=== PATIENT | female | born 1955 | race Two or more races ===

== ENCOUNTER 2024-12-21 15:40 | Inpatient (IN) | payer BC ==
[~2024-12-21] VITALS: Ht 157.5 cm; Wt 64.9 kg
[2024-12-21 16:53] LABS: PLATELET COUNT (AUTO) 357 K/uL (150-450); RED BLOOD CELL COUNT(AUTO) 4.01 MIL/uL (4.0-5.2); RED CELL DISTRIBUTION WIDTH 14.1 % (11.5-15.0); WHITE BLOOD COUNT (AUTO) 10.9 K/uL (4.3-11.0)
[2024-12-21 17:05] LABS: CALCIUM, SERUM 9.3 mg/dL (8.5-10.1); CREATININE 1.5 mg/dL (0.6-1.3); SODIUM SERUM 136.0 mmol/L (136-145); UREA NITROGEN, BLOOD 40.0 mg/dL (7-18)
[2024-12-21 17:10] LABS: ASPARTATE AMINOTRANSFERASE 16.0 U/L (15-37); TOTAL PROTEIN, SERUM 8.1 g/dL (6.4-8.2)
[2024-12-21] MEDS ORDERED: ONDANSETRON HCL/PF 4 MG/2 ML VIAL ONE (18:40)
[2024-12-21] MEDS ORDERED: MORPHINE SULFATE INJ 4 MG/ML DISP.SYRIN ONE (18:40)
[2024-12-21] MEDS: IV NS 0.9% 1,000 ML BAG IV ONE ×2 (18:45→21:23)
[2024-12-21] MEDS: MORPHINE SULFATE INJ 2 MG/ML DISP.SYRIN IV ONE ×2 (18:47→21:21)
[2024-12-21] MEDS: ONDANSETRON HCL/PF 4 MG/2 ML VIAL IV ONE (18:47)
[2024-12-21 19:11] LABS: APPEARANCE,URINE CLEAR (CLEAR); BLOOD, URINE 1+ Ery/uL (NEGATIVE); LEUKOCYTE ESTERASE ,URINE 3+ (NEGATIVE); NITRITE, URINE NEGATIVE (NEGATIVE); UGLUCOSE NEGATIVE (NEGATIVE)
[2024-12-21 19:24] LABS: ADD URINE CULTURE YES
[2024-12-21 19:25] LABS: SQUAMOUS EPITHELIAL CELL,UR Rare /HPF (None Seen)
[2024-12-21 20:32] LABS: ASPARTATE AMINOTRANSFERASE 20.0 U/L (15-37); CALCIUM, SERUM 8.6 mg/dL (8.5-10.1); CREATININE 1.4 mg/dL (0.6-1.3); SODIUM SERUM 137.0 mmol/L (136-145); TOTAL PROTEIN, SERUM 7.0 g/dL (6.4-8.2); UREA NITROGEN, BLOOD 38.0 mg/dL (7-18)
[2024-12-21] MEDS: CEFTRIAXONE 1GM BAG (ER ONLY) 50 ML IV ONE (21:23)
[2024-12-21] MEDS ORDERED: ONDANSETRON HCL/PF 4 MG/2 ML VIAL IVP PRN (22:00)
[2024-12-21] MEDS ORDERED: MAG HYDROX/AL HYDROX/SIMETH 30 ML UDC PO PRN (22:00)
[2024-12-21] MEDS ORDERED: Z GUARD REMEDY 4 OZ OINT TP PRN (22:00)
[2024-12-21] MEDS ORDERED: MAGNESIUM HYDROXIDE 30 ML UDC PO PRN (22:00)
[2024-12-21 23:10] VITALS: BP 145/55; TEMP 98.2; O2SAT 98
[2024-12-22] MEDS ORDERED: PIPERACI/TAZO 3.375GM/D5W 50ML PB IV ONE (00:21)
[2024-12-22] MEDS: IV NS 0.9% 1,000 ML IV PRN (00:30)
[2024-12-22] MEDS: PIPERACILLIN /TAZOBACTAM 3.375 G in IV D5W 50 ML IV SCH (00:31)
[2024-12-22 07:31] LABS: PLATELET COUNT (AUTO) 286 K/uL (150-450); RED BLOOD CELL COUNT(AUTO) 3.59 MIL/uL (4.0-5.2); RED CELL DISTRIBUTION WIDTH 13.8 % (11.5-15.0); WHITE BLOOD COUNT (AUTO) 9.8 K/uL (4.3-11.0)
[2024-12-22 08:00] VITALS: BP 121/51; TEMP 99.5; O2SAT 100
[2024-12-22 08:14] LABS: CALCIUM, SERUM 8.3 mg/dL (8.5-10.1); CREATININE 1.4 mg/dL (0.6-1.3); PHOSPHORUS 3.2 mg/dL (2.5-4.9); SODIUM SERUM 137.0 mmol/L (136-145); UREA NITROGEN, BLOOD 31.0 mg/dL (7-18)
[2024-12-22] MEDS: ACIDOPHILUS/BULGARICUS 1 EACH TAB.CHEW PO SCH (08:38)
[2024-12-22] MEDS: PANTOPRAZOLE 40 MG VIAL IV SCH (08:38)
[2024-12-22] MEDS: ACETAMINOPHEN 325 MG TABLET PO PRN (13:40)
[2024-12-22] MEDS: PIPERACILLIN /TAZOBACTAM 3.375 G in IV D5W 100 ML IV SCH (13:40)
[2024-12-22] MEDS ORDERED: MECL-159 PO (14:41)
[2024-12-22] MEDS ORDERED: PROP60TA6 PO (14:41)
[2024-12-22] MEDS ORDERED: GABA600T12 PO (14:41)
[2024-12-22] MEDS ORDERED: ACET-3117 PO (14:41)
[2024-12-22] MEDS ORDERED: DULO30CA52 PO (14:41)
[2024-12-22] MEDS ORDERED: BUPR-54 PO (14:41)
[2024-12-22] MEDS ORDERED: LEVO137T2 PO (14:41)
[2024-12-22] MEDS ORDERED: FERR325T24 PO (14:41)
[2024-12-22] MEDS ORDERED: MULT-213 PO (14:41)
[2024-12-22 16:00] VITALS: BP 142/54; TEMP 98.1; O2SAT 99
[2024-12-22] MEDS: GABAPENTIN 400 MG CAPSULE PO SCH (20:59)
[2024-12-22] MEDS: PROPRANOLOL HCL 40 MG TABLET PO SCH (21:59)
[2024-12-22] MEDS: MECLIZINE HCL 25 MG TABLET PO SCH (22:00)
[2024-12-22] MEDS: DULOXETINE HCL 30 MG CAPSULE.DR PO SCH (22:00)
[2024-12-22 22:08] VITALS: BP_SYST 130; BP_SYST 151; BP_DIAS 75; BP_DIAS 76; TEMP 97.9; TEMP 98.2; O2SAT 90; O2SAT 97
[2024-12-23 06:59] LABS: PLATELET COUNT (AUTO) 349 K/uL (150-450); RED BLOOD CELL COUNT(AUTO) 3.80 MIL/uL (4.0-5.2); RED CELL DISTRIBUTION WIDTH 13.8 % (11.5-15.0); WHITE BLOOD COUNT (AUTO) 9.4 K/uL (4.3-11.0)
[2024-12-23 07:00] VITALS: BP 139/63; TEMP 97.9; O2SAT 97
[2024-12-23 07:08] LABS: ASPARTATE AMINOTRANSFERASE 15.0 U/L (15-37); CALCIUM, SERUM 9.1 mg/dL (8.5-10.1); CREATININE 1.4 mg/dL (0.6-1.3); PHOSPHORUS 3.6 mg/dL (2.5-4.9); SODIUM SERUM 137.0 mmol/L (136-145); TOTAL PROTEIN, SERUM 7.6 g/dL (6.4-8.2); UREA NITROGEN, BLOOD 22.0 mg/dL (7-18)
[2024-12-23 07:19] LABS: CREATINE KINASE, TOTAL 79.0 U/L (26-192)
[2024-12-23] MEDS: LEVOTHYROXINE SODIUM 137 MCG TABLET PO SCH (08:10)
[2024-12-23 08:28] VITALS: BP 139/63; TEMP 97.9
[2024-12-23] MEDS: MULTIVIT W/MINERALS 1 TAB TABLET PO SCH (09:06)
[2024-12-23] MEDS: FERROUS SULFATE (325 MG) 325 MG/TAB TABLET PO SCH (09:07)
[2024-12-23] MEDS: PANTOPRAZOLE 40 MG/PACK PACK PO SCH (09:08)
[2024-12-23] MEDS: BUPROPION XL 150 MG TAB.ER.24 PO SCH (09:08)
[2024-12-23 16:00] VITALS: BP 114/57; TEMP 98.1; O2SAT 91
[2024-12-23 16:26] VITALS: BP 114/57; TEMP 98.1; O2SAT 96
[2024-12-23 20:00] VITALS: BP 150/65; TEMP 98.2; O2SAT 96
[2024-12-24 07:00] VITALS: BP 128/53; TEMP 97.5; O2SAT 97
[2024-12-24 07:23] LABS: PLATELET COUNT (AUTO) 296 K/uL (150-450); RED BLOOD CELL COUNT(AUTO) 3.44 MIL/uL (4.0-5.2); RED CELL DISTRIBUTION WIDTH 13.4 % (11.5-15.0); WHITE BLOOD COUNT (AUTO) 6.7 K/uL (4.3-11.0)
[2024-12-24 07:47] LABS: CALCIUM, SERUM 8.5 mg/dL (8.5-10.1); CREATININE 1.5 mg/dL (0.6-1.3); PHOSPHORUS 3.1 mg/dL (2.5-4.9); SODIUM SERUM 137.0 mmol/L (136-145); UREA NITROGEN, BLOOD 18.0 mg/dL (7-18)
[2024-12-24 07:58] VITALS: BP 128/53; TEMP 97.5; O2SAT 97
[2024-12-24 08:11] LABS: PTH, INTACT 45 pg/mL (15-65)
[2024-12-24 08:25] VITALS: BP 128/53
[2024-12-24] MEDS ORDERED: METR500T PO (11:42)
[2024-12-24] MEDS ORDERED: ACID1TAB12 PO (11:42)
[2024-12-24] MEDS ORDERED: CIPR-262 PO (11:42)
== END 2024-12-24 12:44 | DRG 391 ==
LOC: ER 15:48 → TELE 22:30 → MED 23:12
PROVIDERS: ADMIT Nurse Practitioner Acute Care; ATTEND Nurse Practitioner Acute Care
DX: A09 Infectious gastroenteritis and colitis, unspecified (principal); N17.0 Acute kidney failure with tubular necrosis; E44.0 Moderate protein-calorie malnutrition; E87.20 Acidosis, unspecified; E86.0 Dehydration; N39.0 Urinary tract infection, site not specified; E05.90 Thyrotoxicosis, unspecified without thyrotoxic crisis or storm; I12.9 Hypertensive chronic kidney disease with stage 1 through stage 4 chronic kidney disease, or unspecified chronic kidney disease; D64.9 Anemia, unspecified; N18.9 Chronic kidney disease, unspecified; E88.09 Other disorders of plasma-protein metabolism, not elsewhere classified; E83.89 Other disorders of mineral metabolism; E78.5 Hyperlipidemia, unspecified; Z68.26 Body mass index [BMI] 26.0-26.9, adult; Z85.72 Personal history of non-Hodgkin lymphomas
CPT/HCPCS: 36415; 76770-TC; 80048-TC; 80053-TC; 81001; 82550-TC; 83605-TC; 83690-TC; 83735-TC; 83970; 84100-TC; 84155; 84165; 84436-TC; 84443-TC; 85025-TC; 87040-TC; 87086-TC; A4223; G0378; J2270; J2405; J2470; J2543; J7030; J7060; J8597